=== PATIENT | male | born 2005 | race Caucasian/White ===

== ENCOUNTER 2023-07-10 09:54 | Emergency (ER) | payer BC, SELFPAY ==
[2023-07-10 09:57] VITALS: BP 101/56
[2023-07-10 10:01] VITALS: BMI 20.2
--- NOTE | 2023-07-10 10:32 | ED.GENMED ---
History of Present Illness
General
Chief Complaint: Headache
Source: patient, significant other and family
Exam Limitations: none
Time Seen by Provider: 07/10/23 10:11
Nursing documentation reviewed up to this point in time: agreed with
Travel History
Have you had any contact with someone who has COVID-19?: No
Do you have any symptoms of coronavirus? Fever > 100 degrees, chills, cough, shortness of breath, sore throat, loss of taste or smell, muscle aches, or headache?: No
History of Present Illness
History of Present Illness:
18-year-old male presents with headache fever sore throat congestion stuffy nose with skiing a few days ago possibly rattled his head while wearing a helmet no direct trauma seen by the school nurse told he had a mild concussion, subsequently
developed sore throat, stuffy nose fever chills congestion took some Tylenol this morning no vomiting no rash
Past History
Past History
ED Past Medical History: None
ED Past Surgical History: None
Social History
Tobacco: Non-smoker
Alcohol: None
Drug: None
Personal: Single
Living: with roommate
Employment: Student
Review of Systems
Review of Systems
All Other Systems: Not applicable
Constitutional: Reports fever, fatigue and chills
EENT: Reports sore throat and runny nose
Respiratory: Reports no symptoms
Cardiac: Reports no symptoms
ABD/GI: Reports no symptoms; Denies nausea or vomiting
: Reports no symptoms
Musculoskeletal: Reports muscle pain
Neurological: Reports headache
Endocrine: Reports no symptoms
Phy Exam
Physical Exam
Physical Exam:
Physical Exam
General: 18-year-old male stuffy nose, looks mildly uncomfortable nontoxic
Neck: Posterior pharynx is red no exudates, TMs obscured by
Heart: s1/s2 regular rate and rhythm, no murmur. equal radial pulses.
Lungs: no acute respiratory distress. clear bilaterally
Abdomen: Nontender
Neuro: alert and oriented. no focal neurological deficits
Skin: no rash
Psychiatric: well kept. interactive and cooperative
Extremities: no edema.
Course
Orders/Labs/Results
Orders:
Orders
07/10/23 10:29
Amoxicillin [Amoxil] 500 mg PO NOW STA
Ibuprofen [Motrin] 600 mg PO NOW STA
Ondansetron Orally Disint [Zofran Odt (Orally Disintegrating)] 4 mg PO NOW STA
Vital Signs
Initial and Last Documented VS:
Initial Vital Signs
Temp Pulse Resp BP Pulse Ox
98.7 F 112 18 101/56 99
07/10/23 09:57 07/10/23 09:57 07/10/23 09:57 07/10/23 09:57 07/10/23 09:57
Last Documented Vital Signs
Temp Pulse Resp BP Pulse Ox
98.7 F 112 18 101/56 99
07/10/23 09:57 07/10/23 09:57 07/10/23 09:57 07/10/23 09:57 07/10/23 09:57
MDM/Problems Addressed
Differential Diagnosis Includes:
Mild head injury, sinusitis strep pharyngitis doubt [employer] infection
MDM/Problems Addressed:
Headache fever congestion
*Pulse Oximetry
Patient hypoxic: no
*Critical Care Note
Total Time (30-74mins, 75-104mins- exclusive of procedures): Not Applicable
Update Note
Update Note:
Suspect sinusitis could be viral, will treat empirically with antibiotics and mucolytic's
Head injury may be a red zuniga see no indication for imaging at this time
ED Attending Note
-
Portions of this chart may have been created with voice recognition software.� Occasional wrong word or��sound alike� substitutions may have occurred due to the inherent limitations of voice recognition software.
Discharge Plan
Departure
Patient Disposition: Home (Routine Discharge)
Date of Disposition: 07/10/23
Time of Disposition: 10:30
Patient with high blood pressure during this ER visit?: No
Condition: Good
Discharge Problem:
Acute sinusitis
Instructions: Sinusitis in adults, Sinus Headache (DC), Headache, Adult (DC)
Prescriptions:
New
ondansetron 4 mg tablet,disintegrating
4 mg PO Q8H PRN (Reason: nausea and vomiting) Qty: 10 0RF
amoxicillin 500 mg tablet
500 mg PO TID 10 Days Qty: 30 0RF
guaifenesin [Mucinex] 1,200 mg tablet extended release 12hr
1,200 mg PO BID PRN (Reason: Congestion) Qty: 20 0RF
Referrals:
Harper Helm MD [Family Provider] -
Interventions
Interventions:
*Risk Screen - Suicide Last Done: 07/10/23 10:01
*General Assessment Last Done: 07/10/23 10:01
*Neglect/Abuse Screening Last Done: 07/10/23 10:01
ED- Fall Risk Assessment Last Done: 07/10/23 10:01
*ED COVID-19 Vaccine History Last Done: 07/10/23 10:01
ED- Neurological Assessment Last Done: 07/10/23 10:01
[2023-07-10] MEDS: AMOXIL 500 MG PO (11:07)
[2023-07-10] MEDS: MOTRIN 600 MG PO (11:07)
[2023-07-10] MEDS: ZOFRAN ODT (ORALLY DISINTEGRATING) 4 MG PO (11:07)
== END 2023-07-10 11:12 | disposition home or self-care (01) ==
LOC: EMR 09:54
PROVIDERS: EMERGENCY PHYSICIAN Emergency Medicine; FAMILY PHYSICIAN Internal Medicine
DX: J01.90 Acute sinusitis, unspecified (principal)
CPT/HCPCS: 99282